=== PATIENT | female | born 1985 | race African-American/Black ===

== ENCOUNTER 2018-11-16 04:10 | Emergency (ER) | payer MEDICAID ==
[~2018-11-16] VITALS: Ht 152.4 cm; Wt 85.0 kg
[2018-11-16] MEDS ORDERED: IBUPROFEN 600MG TABLET PO STA (05:53)
[2018-11-16] MEDS ORDERED: TETANUS, DIPHTHERIA, PERTUSSIS VAC/PF 0.5ML (>7YR OLD) IM ONE (06:00)
[2018-11-16 07:45] VITALS: BP 148/95
== END 2018-11-16 07:58 | disposition home or self-care (01) ==
LOC: ER 04:10
DX: S61.255A Open bite of left ring finger without damage to nail, initial encounter (principal); Y04.1XXA Assault by human bite, initial encounter; Y93.89 Activity, other specified; Y92.89 Other specified places as the place of occurrence of the external cause; Z23 Encounter for immunization; I10 Essential (primary) hypertension; F17.210 Nicotine dependence, cigarettes, uncomplicated
CPT/HCPCS: 73140; 90471; 90715; 99283

== ENCOUNTER 2019-11-27 02:23 | Emergency (ER) | payer MEDICAID ==
[~2019-11-27] VITALS: Ht 154.9 cm; Wt 98.0 kg
[2019-11-27] MEDS ORDERED: KETOROLAC 60MG/2ML VIAL IM ONE (05:00)
[2019-11-27 05:05] VITALS: BP 143/95
== END 2019-11-27 05:19 | disposition home or self-care (01) ==
LOC: ER 02:23
DX: G89.29 Other chronic pain (principal); M25.512 Pain in left shoulder; I10 Essential (primary) hypertension
CPT/HCPCS: 93005; 96372; 99283; J1885

== ENCOUNTER 2021-12-08 06:42 | Emergency (ER) | payer MEDICAID ==
[~2021-12-08] VITALS: Ht 152.4 cm; Wt 91.0 kg
[2021-12-08 07:04] VITALS: BP 162/96
== END 2021-12-08 09:25 | disposition left against medical advice (07) ==
LOC: ER 06:42
DX: Z53.21 Procedure and treatment not carried out due to patient leaving prior to being seen by health care provider (principal)
CPT/HCPCS: 93005